=== PATIENT | female | born 1930 | race Caucasian/White ===

== ENCOUNTER 2019-12-27 07:57 | Inpatient (IN) | payer MEDICARE, BC ==
[2019-12-27] MEDS ORDERED: NORMAL SALINE 500 ML IV ONE (08:02)
--- NOTE | 2019-12-27 08:05 | ER Document Report ---
ED General - General Stated Complaint: URINARY ISSUES,DIARRHEA Time Seen by Provider: 12/27/19 08:02 Notes: 89-year-old lady presents brought in by EMS for unknown reasons. Apparently she is just finished a course of Keflex for what sounds like it might of been a UTI. This morning she had 2 episodes of diarrhea which at home health aide had to clean up, somehow suspected UTI and called 911. The patient has no complaints at all except for chronic back pain. She is demented but oriented x3 and denies vomiting dysuria abdominal cramping. She does remember having diarrhea but it did not bother her. EMS vitals normal. TRAVEL OUTSIDE OF THE [place] IN LAST 30 DAYS: No - Related Data Allergies/Adverse Reactions: No Known Allergies Allergy (Verified 11/21/11 09:28) Past Medical History - General Information source: Patient - Social History Smoking Status: Never Smoker Family History: None - Past Medical History Cardiac Medical History: Reports: Hx Atrial Fibrillation, Hx Hypertension Denies: Hx Coronary Artery Disease, Hx Heart Attack Pulmonary Medical History: Denies: Hx Asthma, Hx Bronchitis, Hx COPD, Hx Pneumonia, Hx Tuberculosis Neurological Medical History: Denies: Hx Cerebrovascular Accident, Hx Seizures GI Medical History: Denies: Hx Hepatitis, Hx Hiatal Hernia, Hx Ulcer Musculoskeletal Medical History: 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 Denies: Hx Mastectomy, Hx Open Heart Surgery, Hx Pacemaker - Immunizations Hx Diphtheria, Pertussis, Tetanus Vaccination: Yes Hx Pneumococcal Vaccination: 05/04/08 Review of Systems - Review of Systems Notes: REVIEW OF SYSTEMS GEN: Denies fever, chills, weight loss ENT: Denies sore throat, nasal discharge, ear pain EYES: Denies blurry vision, eye pain, discharge CV: Denies chest pain, palpitations, edema RESP: Denies cough, shortness of breath, wheezing GI: Denies abdominal pain, nausea, vomiting, diarrhea MSK: Back pain unchanged SKIN: Denies rash, skin lesions LYMPH: Denies swollen glands/lymph nodes NEURO: Denies headache, focal weakness or numbness, dizziness PSYCH: Denies depression, suicidal or homicidal ideation PHYSICAL EXAMINATION General: No acute distress, well-nourished Head: Atraumatic, normocephalic ENT: Mouth normal, oropharynx moist, no exudates or tonsillar enlargement Eyes: Conjunctiva normal, pupils equal, lids normal Neck: No JVD, supple, no guarding CVS: Normal rate, regular rhythm, no murmurs Resp: No resp distress, equal and normal breath sounds bilaterally GI: Nondistended, soft, no tenderness to palpation, no rebound or guarding Ext: No deformities, no edema, normal range of motion in upper and lower ext Back: No CVA or midline TTP Skin: No rash, warm Lymphatic: No lymphadeopathy noted Neuro: Awake, alert. Face symmetric. GCS 15. Physical Exam - Vital signs Vitals: Temp Pulse BP Pulse Ox 98.2 F 95 168/92 H 96 12/27/19 08:01 12/27/19 08:01 12/27/19 08:01 12/27/19 08:01 Course - Re-evaluation Re-evalutation: 12/27/19 10:10 Patient presents with diarrhea in the setting of recent Keflex for what may have been a UTI or diving. Not having diarrhea in the ED. We will give fluids and check labs. Will not repeat UA as she has no symptoms or fever Mild hyponatremia and hypokalemia. Attempted admission, Dr. Talavera and I agreed to attempt fluid hydration/resuscitation and recheck her BMP and if less than 130 will admit. Discussed with family who agrees. 12/27/19 14:56 Patient got fluids and potassium and her sodium did not change. Admitted by Dr. pham. - Vital Signs Vital signs: Temp Pulse Resp BP Pulse Ox 98.4 F 77 18 154/88 H 94 12/27/19 11:46 12/27/19 11:42 12/27/19 11:42 12/27/19 11:42 12/27/19 11:42 - Laboratory Result Diagrams: 12/27/19 08:10 12/27/19 10:48 Laboratory results interpreted by me: 12/27/19 12/27/19 12/27/19 08:10 08:10 10:48 RDW 14.5 H Lymph % (Auto) 11.0 L [place] % (Auto) 13.3 H Sodium 122.9 L 122.6 L Potassium 3.1 L 3.2 L Chloride 84 L 86 L Carbon Dioxide 33 H 31 H Serum Osmolality Calcium 8.0 L 7.6 L 12/27/19 10:48 RDW Lymph % (Auto) [place] % (Auto) Sodium Potassium Chloride Carbon Dioxide Serum Osmolality 252 L Calcium Critical Care Note - Critical Care Note Total time excluding time spent on procedures (mins): 31 Comments: The above patient is critically ill. Not including procedures, but including direct re-evaluations, speaking with patient and/or consultants, interpreting results, and documenting, I spent the total amount of minute listed listed above on critical care time Discharge - Discharge Clinical Impression: Hyponatremia Condition: Good Disposition: ADMITTED OBSERVATION Admitting Provider: [facility] Unit Admitted: Telemetry
[2019-12-27 08:37] LABS: ABSOLUTE BASOPHILS # (AUTO) 0.1 10^3/uL (0.0-0.2); ABSOLUTE LYMPHOCYTES (AUTO) 0.9 10^3/uL (0.5-4.7); ABSOLUTE MONOCYTES (AUTO) 1.1 10^3/uL (0.1-1.4); ABSOLUTE NEUT (AUTO) 6.1 10^3/uL (1.7-8.2); BASOPHILS % (AUTO) 0.8 % (0-2); EOSINOPHILS % (AUTO) 0.5 % (0-6); HEMATOCRIT 36.3 % (36.0-47.0); HEMOGLOBIN 12.4 g/dL (12.0-15.5); MEAN CORPUSCULAR HGB CONC 34.3 g/dL (32.0-36.0); MEAN CORPUSCULAR VOLUME 88 fl (80-97); MONOCYTES % (AUTO) 13.3 % (3-13); PLATELET COUNT 254 10^3/uL (150-450); RED BLOOD COUNT 4.13 10^6/uL (3.72-5.28); RED CELL DISTRIBUTION WIDTH 14.5 % (11.5-14.0); SEGMENTED NEUTROPHILS % (AUTO) 74.4 % (42-78); TOTAL CELLS COUNTED % (AUTO) 100 %; WHITE BLOOD COUNT 8.2 10^3/uL (4.0-10.5)
[2019-12-27 08:47] LABS: ANION GAP 6 (5-19); BLOOD UREA NITROGEN 15 mg/dL (7-20); CARBON DIOXIDE 33 mmol/L (22-30); CHLORIDE 84 mmol/L (98-107); GLUCOSE 91 mg/dL (75-110)
[2019-12-27 08:51] LABS: POTASSIUM 3.1 mmol/L (3.6-5.0)
[2019-12-27] MEDS ORDERED: POTASSIUM CHLORIDE 10 MEQ TABLET.ER PO ONE ×2 (09:22→14:15)
[2019-12-27] MEDS ORDERED: RINGERS SOLUTION,LACTATED 1,000 ML IV ONE (09:27)
[2019-12-27 11:32] LABS: ANION GAP 6 (5-19); BLOOD UREA NITROGEN 13 mg/dL (7-20); CALCIUM 7.6 mg/dL (8.4-10.2); CARBON DIOXIDE 31 mmol/L (22-30); CHLORIDE 86 mmol/L (98-107); GLUCOSE 83 mg/dL (75-110); POTASSIUM 3.2 mmol/L (3.6-5.0)
[2019-12-27] MEDS ORDERED: MAG HYDROX/AL HYDROX/SIMETH SUSP 30 ML UDCUP PO PRN (13:41)
[2019-12-27] MEDS ORDERED: ALBUTEROL SULFATE 0.083% NEB 2.5 MG/3 ML AMPUL NEB PRN (13:41)
[2019-12-27] MEDS ORDERED: ONDANSETRON HCL INJ/PF 4 MG/2 ML SDV IV PRN (13:41)
[2019-12-27] MEDS ORDERED: ACETAMINOPHEN 325 MG TABLET PO PRN (13:41)
--- NOTE | 2019-12-27 14:12 | PDOC H&P ---
History of Present Illness Admission Date/PCP: 12/27/19 12:47 TOM MOODY MD Patient complains of: Generalized weakness and falls History of Present Illness: BREANNA BAUGH is a 89 year old female with a past medical history of hypertension, hyperlipidemia, GERD, depression who presents to the emergency department today with a complaint of generalized weakness and frequent falls over the last week. Family member noted she began having frequent loose stools yesterday. She has had multiple courses of p.o. antibiotics recently for urinary tract infection. She denies dysuria, hematuria, urinary urgency and frequency. Patient did fall yesterday; denies syncope or injury related to falls. She typically walks with min assist and walker. Evaluation in the emergency department revealed stable vital signs. Hyponatremia (NA 122.9), hypokalemia (K3.1). She was provided p.o. potassium and IV normal saline. She is referred to the hospitalist service for further evaluation and management of the above-stated complaints and findings. 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 GI Medical History: Denies: Hepatitis, Hiatal Hernia Musculoskeltal Medical History: Reports: Arthritis - RA Psychiatric Medical History: Reports: Dementia, Depression Hematology: Denies: Anemia, Sickle Cell Disease Infectious Medical History: Reports: None Past Surgical History Past Surgical History: Reports: Orthopedic Surgery - right arm, Pacemaker, Other - partial gastrectomy Denies: Amputation, Mastectomy Social History Information Source: Patient, Relative Lives with: Family Smoking Status: Never Smoker Electronic Cigarette use?: No Frequency of Alcohol Use: None Hx Recreational Drug Use: No Hx Prescription Drug Abuse: No - Advance Directive Resuscitation Status: Full Code Family History Family History: None Parental Family History Reviewed: No - can't recall Children Family History Reviewed: Yes Sibling(s) Family History Reviewed.: Yes Medication/Allergy Home Medications: Amlodipine Besylate [Norvasc 10 mg Tablet] 10 mg PO DAILY 12/27/19 Atorvastatin Calcium [Lipitor 10 mg Tablet] 10 mg PO QHS 12/27/19 Fluoxetine HCl [Prozac 20 mg Capsule] 20 mg PO DAILY 12/27/19 Furosemide [Lasix 20 mg Tablet] 20 mg PO QAM 12/27/19 Losartan Potassium [Cozaar 50 mg Tablet] 100 mg PO DAILY 12/27/19 Omeprazole 40 mg PO 12/27/19 Potassium Chloride [Klor-Con 10 Meq Tablet ER] 10 meq PO DAILY 12/27/19 Allergies/Adverse Reactions: No Known Allergies Allergy (Verified 11/21/11 09:28) Review of Systems Constitutional: PRESENT: anorexia, fatigue, weakness, weight loss. ABSENT: chills, fever(s), headache(s), weight gain Eyes: ABSENT: visual disturbances Ears: ABSENT: hearing changes Cardiovascular: ABSENT: chest pain, dyspnea on exertion, edema, orthropnea, palpitations Respiratory: ABSENT: cough, hemoptysis Gastrointestinal: ABSENT: abdominal pain, constipation, diarrhea, hematemesis, hematochezia, nausea, vomiting Genitourinary: ABSENT: dysuria, hematuria Musculoskeletal: ABSENT: joint swelling Integumentary: ABSENT: rash, wounds Neurological: PRESENT: confusion, frequent falls. ABSENT: abnormal gait, abnormal speech, dizziness, focal weakness, syncope Psychiatric: ABSENT: anxiety, depression, homidical ideation, suicidal ideation Endocrine: ABSENT: cold intolerance, heat intolerance, polydipsia, polyuria Hematologic/Lymphatic: ABSENT: easy bleeding, easy bruising Physical Exam Vital Signs: Temp Pulse Resp BP Pulse Ox 98.4 F 77 18 154/88 H 94 12/27/19 11:46 12/27/19 11:42 12/27/19 11:42 12/27/19 11:42 12/27/19 11:42 Intake & Output 12/26/19 12/27/19 12/28/19 06:59 06:59 06:59 Intake Total 1500 Balance 1500 Weight 45.359 kg General appearance: PRESENT: no acute distress, cooperative, hard of hearing, thin, well-developed, well-nourished Head exam: PRESENT: atraumatic, normocephalic Eye exam: PRESENT: conjunctiva pink, EOMI, PERRLA. ABSENT: scleral icterus Mouth exam: PRESENT: moist, tongue midline Respiratory exam: PRESENT: clear to auscultation margaret, symmetrical, unlabored. ABSENT: rales, rhonchi, wheezes Cardiovascular exam: PRESENT: RRR, +S1, +S2. ABSENT: diastolic murmur, rubs, systolic murmur Pulses: PRESENT: normal dorsalis pedis pul Vascular exam: PRESENT: normal capillary refill GI/Abdominal exam: PRESENT: normal bowel sounds, soft. ABSENT: distended, guarding, mass, organolmegaly, rebound, tenderness Rectal exam: PRESENT: deferred Extremities exam: PRESENT: full ROM. ABSENT: calf tenderness, clubbing, pedal edema Neurological exam: PRESENT: alert, awake, oriented to person, oriented to place, oriented to situation, CN II-XII grossly intact, other - intermittently confused/forgetful; possibly attributed to lack of hearing aids at this time. ABSENT: motor sensory deficit Psychiatric exam: PRESENT: appropriate affect, normal mood. ABSENT: homicidal ideation, suicidal ideation Skin exam: PRESENT: dry, warm, other - skin tear right elbow; scattered ecchymosis. ABSENT: cyanosis, rash Results Laboratory Results: 12/27/19 08:10 12/27/19 10:48 12/27/19 12/27/19 12/27/19 08:10 08:10 10:48 WBC 8.2 RBC 4.13 Hgb 12.4 Hct 36.3 MCV 88 MCH 30.0 MCHC 34.3 RDW 14.5 H Plt Count 254 Seg Neutrophils % 74.4 Sodium 122.9 L 122.6 L Potassium 3.1 L 3.2 L Chloride 84 L 86 L Carbon Dioxide 33 H 31 H Anion Gap 6 6 BUN 15 13 Creatinine 0.56 0.52 Est GFR ( Amer) > 60 > 60 Glucose 91 83 Calcium 8.0 L 7.6 L Assessment and Plan - Diagnosis (1) Hyponatremia Is this a current diagnosis for this admission?: Yes Plan: Son reports recent to poor p.o. intake and frequent loose stools. She has had multiple courses of antibiotics for UTI over the last month. She does appear euvolemic on exam. Urinalysis, urine sodium, urine osmolality pending. Serum osmolality pending. Keep in mind that the patient has already received 1 L normal saline per ED provider when interpreting these labs. We will check TSH with a.m. lab work. Hold patient's home dose of Prozac and furosemide. Liberalize dietary sodium. Fluid restrict 2 L daily. Strict I&O's. Serial chemistries. (2) Hypokalemia Is this a current diagnosis for this admission?: Yes Plan: Secondary to poor p.o. intake and GI losses. Potassium 3.2. We will provide additional oral and IV replacement. Magnesium pending. Follow-up chemistry. (3) Weakness Is this a current diagnosis for this admission?: Yes Plan: Likely multifactorial secondary to age, frequent UTI illnesses, hyponatremia, hypokalemia. PT/OT consultations requested. Fall precautions. (4) HTN (hypertension) Is this a current diagnosis for this admission?: Yes Plan: We will continue home dose medication regiment with the exception of furosemide. Adjust medications as indicated. (5) HLD (hyperlipidemia) Is this a current diagnosis for this admission?: Yes Plan: Continue home dose statin therapy. (6) Diarrhea Qualifiers: Diarrhea type: unspecified type Qualified Code(s): R19.7 - Diarrhea, unspec ified Is this a current diagnosis for this admission?: Yes Plan: Son reports 24 hours of frequent loose stools. Multiple recent antibiotics for UTIs. Patient is afebrile, WBC nml, no abd discomfort. Low suspicion for C. Diff, however, will r/o. C. diff PCR pending. (7) Frequent falls Is this a current diagnosis for this admission?: Yes Plan: As above. - Time Time Spent with patient: 35 or more minutes Medications reviewed and adjusted accordingly: Yes Anticipated Discharge Disposition: Home with Home Health Anticipated Discharge Timeframe: >72 hrs - Inpatient Certification Based on my medical assessment, after consideration of the patient's comorbidities, presenting symptoms, or acuity I expect that the services needed warrant INPATIENT care.: Yes I certify that my determination is in accordance with my understanding of Medicare's requirements for reasonable and necessary INPATIENT services [42 CFR 412.3e].: Yes Medical Necessity: Need Close Monitoring Due to Risk of Patient Decompensation, Need For IV Fluids
[2019-12-27] MEDS: HEPARIN SOD (PORCINE) 5,000 UNIT/ML 1 ML VIAL SUBCUT SCH ×2 (15:25→21:49)
[2019-12-27] MEDS: NORMAL SALINE 1000 ML 1,000 ML IV PRN (15:46)
[2019-12-27] MEDS: POTASSI CL 20 MEQ/50 ML RIDER 20 MEQ/50 ML RTUPB IV SCH ×2 (15:46→17:54)
[2019-12-28 06:26] LABS: HEMATOCRIT 35.8 % (36.0-47.0); HEMOGLOBIN 12.2 g/dL (12.0-15.5); MEAN CORPUSCULAR HEMOGLOBIN 29.8 pg (27.0-33.4); MEAN CORPUSCULAR VOLUME 88 fl (80-97); PLATELET COUNT 248 10^3/uL (150-450); RED BLOOD COUNT 4.08 10^6/uL (3.72-5.28); RED CELL DISTRIBUTION WIDTH 14.4 % (11.5-14.0); WHITE BLOOD COUNT 6.7 10^3/uL (4.0-10.5)
[2019-12-28] MEDS: HEPARIN SOD (PORCINE) 5,000 UNIT/ML 1 ML VIAL SUBCUT SCH ×3 (06:48→21:29)
[2019-12-28 06:57] LABS: FREE T3 2.02 pg/mL (2.77-5.27); FREE T4 (FREE THYROXINE) 1.8 ng/dL (0.78-2.19)
[2019-12-28 07:10] LABS: THYROID STIMULATING HORMONE 3.4 uIU/mL (0.47-4.68)
[2019-12-28 08:59] LABS: ANION GAP 10 (5-19); BLOOD UREA NITROGEN 14 mg/dL (7-20); CALCIUM 8.4 mg/dL (8.4-10.2); CARBON DIOXIDE 24 mmol/L (22-30); CHLORIDE 92 mmol/L (98-107); GLUCOSE 87 mg/dL (75-110)
[2019-12-28 09:07] LABS: POTASSIUM 4.4 mmol/L (3.6-5.0)
[2019-12-28 09:44] LABS: APPEARANCE,URINE CLEAR; BILIRUBIN,URINE NEGATIVE (NEGATIVE); COLOR,URINE YELLOW; GLUCOSE, URINE NEGATIVE (NEGATIVE); KETONES,URINE 20 mg/dL (NEGATIVE); PROTEIN,URINE 30 mg/dL (NEGATIVE); URINE SPECIFIC GRAVITY 1.009
[2019-12-28 10:53] LABS: URINE SODIUM 86 mmol/L (30-90)
[2019-12-28 10:56] LABS: OSMOLALITY,URINE 342 mOsm/kg (300-900)
[2019-12-28 11:24] LABS: C DIFFICILE GDH NEGATIVE (NEGATIVE)
[2019-12-28] MEDS: NORMAL SALINE 1000 ML 1,000 ML IV PRN (12:02)
[2019-12-28] MEDS ORDERED: LOPERAMIDE HCL 2 MG CAPSULE PO PRN (17:36)
--- NOTE | 2019-12-28 17:37 | PDOC PROGRESS REPORT ---
Subjective Progress Note for:: 12/28/19 Subjective:: BREANNA BAUGH is a 89 year old female with a past medical history of hypertension, hyperlipidemia, GERD, depression who was admitted 12/27/19 for hyponatremia and hypokalemia. Patient was seen on afternoon rounds with her son present. She was resting in bed, comfortably, on room air. She tells me she does not feel well, but is unable to describe why and answers all ROS questions to the negative. Son reports slight increase in confusion today. She denies chest pain, palpitations, dyspnea, abdominal pain, nausea vomiting and diarrhea. She reports average appetite; son indicates that he is not certain what she has had to eat today, but she did eat an egg roll and drink a full size drink that he brought in from outside. Nursing notes indicate she is consumed 25 to 50% of her meals. I have no other questions or concerns at this time. No concerns per nursing. Reason For Visit: HYPONATREMIA,HYPOKALEMIA Physical Exam Vital Signs: Temp Pulse Resp BP Pulse Ox 98.2 F 79 19 154/86 H 91 L 12/28/19 12:53 12/28/19 14:00 12/28/19 12:53 12/28/19 12:53 12/28/19 12:53 Intake & Output 12/27/19 12/28/19 12/29/19 06:59 06:59 06:59 Intake Total 1959 1699 Balance 1959 1699 Weight 45.35 kg 45.3 kg General appearance: PRESENT: no acute distress, cooperative, hard of hearing, thin, well-developed Head exam: PRESENT: atraumatic, normocephalic Eye exam: PRESENT: conjunctiva pink, EOMI, PERRLA. ABSENT: scleral icterus Ear exam: PRESENT: normal external ear exam Mouth exam: PRESENT: moist, tongue midline Respiratory exam: PRESENT: clear to auscultation margaret, symmetrical, unlabored. ABSENT: rales, rhonchi, wheezes Cardiovascular exam: PRESENT: RRR. ABSENT: diastolic murmur, rubs, systolic murmur Pulses: PRESENT: normal dorsalis pedis pul Vascular exam: PRESENT: normal capillary refill GI/Abdominal exam: PRESENT: normal bowel sounds, soft. ABSENT: distended, guarding, mass, organolmegaly, rebound, tenderness Rectal exam: PRESENT: deferred Extremities exam: PRESENT: full ROM. ABSENT: calf tenderness, clubbing, pedal edema Neurological exam: PRESENT: alert, awake, oriented to person, oriented to place, oriented to time, oriented to situation, CN II-XII grossly intact, other - intermittently confused/forgetful. ABSENT: motor sensory deficit Psychiatric exam: PRESENT: appropriate affect, normal mood. ABSENT: homicidal ideation, suicidal ideation Skin exam: PRESENT: dry, intact, skin tears - skin tear right elbow; scattered ecchymosis, warm, other - Improved skin turgor. ABSENT: cyanosis, rash Results Laboratory Results: 12/28/19 05:47 12/28/19 05:47 12/28/19 12/28/19 12/28/19 05:47 05:47 05:47 WBC 6.7 RBC 4.08 Hgb 12.2 Hct 35.8 L MCV 88 MCH 29.8 MCHC 34.0 RDW 14.4 H Plt Count 248 Sodium 125.5 L Potassium 4.4 D Chloride 92 L Carbon Dioxide 24 Anion Gap 10 BUN 14 Creatinine 0.52 Est GFR ( Amer) > 60 Glucose 87 Calcium 8.4 TSH 3.40 Free T4 1.80 Free T3 pg/mL 2.02 L Urine Color Urine Appearance Urine pH Ur Specific [place] Urine Protein Urine Glucose (UA) Urine Ketones Urine Blood Urine RBC (Auto) Urine Osmolality 12/28/19 12/28/19 07:24 07:24 WBC RBC Hgb Hct MCV MCH MCHC RDW Plt Count Sodium Potassium Chloride Carbon Dioxide Anion Gap BUN Creatinine Est GFR ( Amer) Glucose Calcium TSH Free T4 Free T3 pg/mL Urine Color YELLOW Urine Appearance CLEAR Urine pH 7.0 Ur Specific [place] 1.009 Urine Protein 30 H Urine Glucose (UA) NEGATIVE Urine Ketones 20 H Urine Blood NEGATIVE Urine RBC (Auto) 1 Urine Osmolality 342 Assessment and Plan - Diagnosis (1) Hyponatremia Is this a current diagnosis for this admission?: Yes Plan: Son reports recent to poor p.o. intake and frequent loose stools. She has had multiple courses of antibiotics for UTI over the last month. She does appear dehydrated on exam; poor skin turgor, dry skin, dry mucous membranes. Urinalysis was negative. Urine sodium, urine osmolality were unfortunately not collected until after 24 hours of IV fluids. Both normal at this time. Serum osmolality slightly low at 252 following 1 L normal saline by ED provider. Thyroid panel is acceptable. Hold patient's home dose of Prozac and furosemide. Liberalize dietary sodium. Continue gently IVF Free water restrict 2 L daily. Sodium chloride 1 g p.o. daily. Strict I&O's. Serial chemistries. (2) Hypokalemia Is this a current diagnosis for this admission?: Yes Plan: Replete. Secondary to poor p.o. intake and GI losses. Magnesium 1.6 Follow-up chemistry. (3) Weakness Is this a current diagnosis for this admission?: Yes Plan: Likely multifactorial secondary to age, frequent UTI illnesses, hyponatremia, hypokalemia. PT/OT consultations requested. Fall precautions. (4) HTN (hypertension) Is this a current diagnosis for this admission?: Yes Plan: We will continue home dose medication regiment with the exception of furosemide. Adjust medications as indicated. (5) HLD (hyperlipidemia) Is this a current diagnosis for this admission?: Yes Plan: Continue home dose statin therapy. (6) Diarrhea Qualifiers: Diarrhea type: unspecified type Qualified Code(s): R19.7 - Diarrhea, unspecified Is this a current diagnosis for this admission?: Yes Plan: Son reports 24 hours of frequent loose stools. Multiple recent antibiotics for UTIs. Patient is afebrile, WBC nml, no abd discomfort. 3 bowel movements noted by nursing today. C. difficile negative. We will start Imodium as needed (7) Frequent falls Is this a current diagnosis for this admission?: Yes Plan: As above. - Time Time Spent with patient: 25-34 minutes Medications reviewed and adjusted accordingly: Yes Anticipated Discharge Disposition: Home with Home Health Anticipated Discharge Timeframe: within 24 hours
[2019-12-28] MEDS ORDERED: SODIUM CHLORIDE 1 GM TABLET PO SCH (20:00)
[2019-12-28] MEDS: ATORVASTATIN CALCIUM 10 MG TABLET PO SCH (21:29)
[2019-12-29] MEDS: NORMAL SALINE 1000 ML 1,000 ML IV PRN (04:58)
[2019-12-29] MEDS: PANTOPRAZOLE SODIUM 40 MG TABLET.DR PO SCH (05:03)
[2019-12-29] MEDS: HEPARIN SOD (PORCINE) 5,000 UNIT/ML 1 ML VIAL SUBCUT SCH ×3 (05:03→21:48)
[2019-12-29 07:54] LABS: HEMOGLOBIN 11.9 g/dL (12.0-15.5); MEAN CORPUSCULAR HEMOGLOBIN 29.7 pg (27.0-33.4); MEAN CORPUSCULAR HGB CONC 33.9 g/dL (32.0-36.0); MEAN CORPUSCULAR VOLUME 88 fl (80-97); PLATELET COUNT 279 10^3/uL (150-450); RED CELL DISTRIBUTION WIDTH 14.5 % (11.5-14.0)
[2019-12-29 08:19] LABS: ANION GAP 8 (5-19); BLOOD UREA NITROGEN 13 mg/dL (7-20); CALCIUM 8.4 mg/dL (8.4-10.2); CARBON DIOXIDE 22 mmol/L (22-30); CHLORIDE 93 mmol/L (98-107); GLUCOSE 108 mg/dL (75-110); POTASSIUM 3.6 mmol/L (3.6-5.0)
[2019-12-29] MEDS ORDERED: ONDANSETRON HCL INJ/PF 4 MG/2 ML SDV IV PRN (09:00)
[2019-12-29] MEDS: LOSARTAN POTASSIUM 50 MG TABLET PO SCH (09:21)
[2019-12-29] MEDS: SODIUM CHLORIDE 1 GM TABLET PO SCH (09:22)
--- NOTE | 2019-12-29 18:42 | PDOC PROGRESS REPORT ---
Subjective Progress Note for:: 12/29/19 Subjective:: BREANNA BAUGH is a 89 year old female with a past medical history of hypertension, hyperlipidemia, GERD, depression who was admitted 12/27/19 for hyponatremia and hypokalemia. Patient was seen on afternoon rounds with her son present. She was resting in bed, comfortably, on room air. She states she is feeling well today. Slightly improved appetite. Documentation reveals that she is eating 25 to 50% of her meals. She denies chest pain, palpitations, dyspnea, abdominal pain, nausea vomiting and diarrhea. She has no other questions or concerns at this time. Discussed with patient's son that her sodium has decreased slightly; I have placed her on salt tablets. Discussed that laboratory results are primarily unrevealing; believe her chronic hyponatremia is likely related to age and decreased appetite which is expected to worsen over time. They have no other questions or concerns at this time. No concerns per nursing. Reason For Visit: HYPONATREMIA,HYPOKALEMIA Physical Exam Vital Signs: Temp Pulse Resp BP Pulse Ox 98.2 F 74 15 149/72 H 93 12/29/19 15:41 12/29/19 15:41 12/29/19 15:41 12/29/19 15:41 12/29/19 15:41 Intake & Output 12/28/19 12/29/19 12/30/19 06:59 06:59 06:59 Intake Total 1960 2547 Balance 19597 Weight 45.35 kg 45.3 kg General appearance: PRESENT: no acute distress, cooperative, hard of hearing, thin, well-developed Head exam: PRESENT: atraumatic, normocephalic Eye exam: PRESENT: conjunctiva pink, EOMI, PERRLA. ABSENT: scleral icterus Mouth exam: PRESENT: moist, tongue midline Respiratory exam: PRESENT: clear to auscultation margaret, symmetrical, unlabored. ABSENT: rales, rhonchi, wheezes Cardiovascular exam: PRESENT: RRR. ABSENT: diastolic murmur, rubs, systolic murmur Pulses: PRESENT: normal dorsalis pedis pul Vascular exam: PRESENT: normal capillary refill Extremities exam: PRESENT: full ROM. ABSENT: calf tenderness, clubbing, pedal edema Musculoskeletal exam: PRESENT: ambulatory - With front wheel walker and moderate assist x1 Neurological exam: PRESENT: alert, awake, oriented to person, oriented to place, oriented to situation, CN II-XII grossly intact, other - Intermittently confused/forgetful; at baseline. ABSENT: motor sensory deficit Psychiatric exam: PRESENT: appropriate affect, normal mood. ABSENT: homicidal ideation, suicidal ideation Skin exam: PRESENT: dry, intact, warm. ABSENT: cyanosis, rash Results Laboratory Results: 12/29/19 07:07 12/29/19 07:07 12/29/19 12/29/19 12/29/19 07:07 07:07 07:07 WBC 7.0 RBC 4.00 Hgb 11.9 L Hct 35.0 L MCV 88 MCH 29.7 MCHC 33.9 RDW 14.5 H Plt Count 279 Sodium 123.3 L Potassium 3.6 Chloride 93 L Carbon Dioxide 22 Anion Gap 8 BUN 13 Creatinine 0.54 Est GFR ( Amer) > 60 Glucose 108 Calcium 8.4 Triglycerides 76 Assessment and Plan - Diagnosis (1) Hyponatremia Is this a current diagnosis for this admission?: Yes Plan: Overall unchanged. Son reports recent to poor p.o. intake and frequent loose stools. She has had multiple courses of antibiotics for UTI over the last month. She does appear dehydrated on exam; poor skin turgor, dry skin, dry mucous membranes. Urinalysis was negative. Urine sodium, urine osmolality were unfortunately not collected until after 24 hours of IV fluids. Both normal at this time. Serum osmolality slightly low at 252 following 1 L normal saline by ED provider. Thyroid panel is acceptable. A.m. cortisol and triglycerides are acceptable. ACTH is pending. Hold patient's home dose of Prozac and furosemide. Liberalize dietary sodium. Discontinue IV fluids Free water restrict 2 L daily. Encouraged patient to drink sodium containing fluids such as Gatorade, Pedialyte, V8 juice. Sodium chloride 2 g p.o. daily. Strict I&O's. Serial chemistries. Patient will likely benefit from endocrinology and/or nephrology follow-up. (2) Hypokalemia Is this a current diagnosis for this admission?: Yes Plan: Replete. Secondary to poor p.o. intake and GI losses. Magnesium 1.6 Follow-up chemistry. (3) Weakness Is this a current diagnosis for this admission?: Yes Plan: Likely multifactorial secondary to age, frequent UTI illnesses, hyponatremia, hypokalemia. PT/OT consultations requested. Fall precautions. (4) HTN (hypertension) Is this a current diagnosis for this admission?: Yes Plan: We will continue home dose medication regiment with the exception of furosemide. Adjust medications as indicated. (5) HLD (hyperlipidemia) Is this a current diagnosis for this admission?: Yes Plan: Continue home dose statin therapy. (6) Diarrhea Qualifiers: Diarrhea type: unspecified type Qualified Code(s): R19.7 - Diarrhea, unspecified Is this a current diagnosis for this admission?: Yes Plan: Resolved; no further episodes today. Multiple recent antibiotics for UTIs. Patient is afebrile, WBC nml, no abd discomfort. C. difficile negative. Continue imodium as needed (7) Frequent falls Is this a current diagnosis for this admission?: Yes Plan: As above. - Time Time Spent with patient: 25-34 minutes Medications reviewed and adjusted accordingly: Yes Anticipated Discharge Disposition: Home with Home Health Anticipated Discharge Timeframe: within 72 hours
[2019-12-29] MEDS: ATORVASTATIN CALCIUM 10 MG TABLET PO SCH (21:48)
[2019-12-30 05:27] LABS: ANION GAP 8 (5-19); BLOOD UREA NITROGEN 16 mg/dL (7-20); CALCIUM 8.2 mg/dL (8.4-10.2); CARBON DIOXIDE 24 mmol/L (22-30); CHLORIDE 92 mmol/L (98-107); GLUCOSE 107 mg/dL (75-110); POTASSIUM 3.4 mmol/L (3.6-5.0)
[2019-12-30] MEDS: PANTOPRAZOLE SODIUM 40 MG TABLET.DR PO SCH (05:54)
[2019-12-30] MEDS: HEPARIN SOD (PORCINE) 5,000 UNIT/ML 1 ML VIAL SUBCUT SCH ×3 (05:54→22:08)
[2019-12-30] MEDS ORDERED: TOLVAPTAN 15 MG TABLET PO ONE (09:30)
[2019-12-30] MEDS ORDERED: POTASSIUM CHLORIDE 10 MEQ TABLET.ER PO ONE (09:30)
[2019-12-30] MEDS: SODIUM CHLORIDE 1 GM TABLET PO SCH (10:04)
[2019-12-30] MEDS: LOSARTAN POTASSIUM 50 MG TABLET PO SCH (10:04)
--- NOTE | 2019-12-30 17:24 | PDOC PROGRESS REPORT ---
Subjective Progress Note for:: 12/30/19 Subjective:: BREANNA BAUGH is a 89 year old female with a past medical history of hypertension, hyperlipidemia, GERD, depression who was admitted 12/27/19 for hyponatremia and hypokalemia. Patient was seen on morning rounds. She was resting in bed, comfortably, on room air. She states she is feeling well today. Improved alertness and orientation today. She is conversational. She tells me that she is feeling better and is hopeful to go home soon, but does ask that I keep her until I am certain that she will have to come back. She does admit to a continued poor appetite and is agreeable to trial of Remeron. She denies chest pain, palpitations, dyspnea, abdominal pain, nausea vomiting and diarrhea. She has no other questions or concerns at this time. No concerns per nursing. Reason For Visit: HYPONATREMIA,HYPOKALEMIA Physical Exam Vital Signs: Temp Pulse Resp BP Pulse Ox 97.3 F 40 L 17 184/93 H 95 12/30/19 15:07 12/30/19 15:07 12/30/19 15:07 12/30/19 15:07 12/30/19 15:07 Intake & Output 12/29/19 12/30/19 12/31/19 06:59 06:59 06:59 Intake Total 2547 Balance 2547 Weight 45.3 kg 50.5 kg General appearance: PRESENT: no acute distress, cooperative, hard of hearing, thin, well-developed Head exam: PRESENT: atraumatic, normocephalic Eye exam: PRESENT: conjunctiva pink, EOMI, PERRLA. ABSENT: scleral icterus Mouth exam: PRESENT: moist, tongue midline Respiratory exam: PRESENT: clear to auscultation margaret, symmetrical, unlabored. ABSENT: rales, rhonchi, wheezes Cardiovascular exam: PRESENT: RRR. ABSENT: diastolic murmur, rubs, systolic murmur Vascular exam: PRESENT: normal capillary refill GI/Abdominal exam: PRESENT: normal bowel sounds, soft. ABSENT: distended, guarding, mass, organolmegaly, rebound, tenderness Rectal exam: PRESENT: deferred Extremities exam: PRESENT: full ROM. ABSENT: calf tenderness, clubbing, pedal edema Neurological exam: PRESENT: alert, awake, oriented to person, oriented to place, oriented to situation, CN II-XII grossly intact. ABSENT: motor sensory deficit Psychiatric exam: PRESENT: appropriate affect, normal mood. ABSENT: homicidal ideation, suicidal ideation Skin exam: PRESENT: dry, intact, warm. ABSENT: cyanosis, rash Results Laboratory Results: 12/29/19 07:07 12/30/19 04:49 12/30/19 04:49 Sodium 123.9 L Potassium 3.4 L Chloride 92 L Carbon Dioxide 24 Anion Gap 8 BUN 16 Creatinine 0.63 Est GFR ( Amer) > 60 Glucose 107 Calcium 8.2 L 12/27/19 15:13 Blood Blood Culture (PCR) - Final Staphylococcus Species Assessment and Plan - Diagnosis (1) Hyponatremia Is this a current diagnosis for this admission?: Yes Plan: Overall unchanged. Son reports recent to poor p.o. intake and frequent loose stools. She has had multiple courses of antibiotics for UTI over the last month. She does appear dehydrated on exam; poor skin turgor, dry skin, dry mucous membranes. Urinalysis was negative. Urine sodium, urine osmolality were unfortunately not collected until after 24 hours of IV fluids. Both normal at this time. Serum osmolality slightly low at 252 following 1 L normal saline by ED provider. Thyroid panel is acceptable. A.m. cortisol 32.8 ACTH is elevated to 88.1 Hold patient's home dose of Prozac and furosemide. Liberalize dietary sodium. Free water restrict 2 L daily. Encouraged patient to drink sodium containing fluids such as Gatorade, Pedialyte, V8 juice. Sodium chloride 2 g p.o. daily. Tolvaptan x 1 dose Strict I&O's. Serial chemistries. Patient will likely benefit from endocrinology and/or nephrology follow-up. (2) Hypokalemia Is this a current diagnosis for this admission?: Yes Plan: Mild recurrent hypokalemia Secondary to poor p.o. intake and GI losses. Magnesium 1.6 Start daily replacement therapy. Follow-up chemistry. (3) Weakness Is this a current diagnosis for this admission?: Yes Plan: Likely multifactorial secondary to age, frequent UTI illnesses, hyponatremia, hypokalemia. PT/OT consultations requested. Fall precautions. (4) HTN (hypertension) Is this a current diagnosis for this admission?: Yes Plan: Continue home dose losartan. Continue holding furosemide. Start amlodipine 5 mg daily Adjust medications as indicated. (5) HLD (hyperlipidemia) Is this a current diagnosis for this admission?: Yes Plan: Continue home dose statin therapy. (6) Diarrhea Qualifiers: Diarrhea type: unspecified type Qualified Code(s): R19.7 - Diarrhea, unspecified Is this a current diagnosis for this admission?: Yes Plan: Resolved; no further episodes today. Multiple recent antibiotics for UTIs. Patient is afebrile, WBC nml, no abd discomfort. C. difficile negative. Continue imodium as needed (7) Frequent falls Is this a current diagnosis for this admission?: Yes Plan: Physical therapy consultation As above. - Time Time Spent with patient: 25-34 minutes Medications reviewed and adjusted accordingly: Yes Anticipated Discharge Disposition: Home with Home Health Anticipated Discharge Timeframe: within 48 hours
[2019-12-30 18:25] LABS: ANION GAP 5 (5-19); BLOOD UREA NITROGEN 15 mg/dL (7-20); CALCIUM 8.4 mg/dL (8.4-10.2); CARBON DIOXIDE 25 mmol/L (22-30); CHLORIDE 93 mmol/L (98-107); GLUCOSE 143 mg/dL (75-110); POTASSIUM 4.3 mmol/L (3.6-5.0)
[2019-12-30] MEDS ORDERED: AMLODIPINE BESYLATE 5 MG TABLET PO SCH (22:00)
[2019-12-30] MEDS ORDERED: MIRTAZAPINE 15 MG TABLET PO SCH (22:00)
[2019-12-30] MEDS: ATORVASTATIN CALCIUM 10 MG TABLET PO SCH (22:09)
[2019-12-31] MEDS: PANTOPRAZOLE SODIUM 40 MG TABLET.DR PO SCH (06:23)
[2019-12-31] MEDS: HEPARIN SOD (PORCINE) 5,000 UNIT/ML 1 ML VIAL SUBCUT SCH ×2 (06:23→15:34)
[2019-12-31 06:58] LABS: ANION GAP 7 (5-19); BLOOD UREA NITROGEN 18 mg/dL (7-20); CALCIUM 8.7 mg/dL (8.4-10.2); CARBON DIOXIDE 28 mmol/L (22-30); CHLORIDE 97 mmol/L (98-107); GLUCOSE 105 mg/dL (75-110); POTASSIUM 5.2 mmol/L (3.6-5.0)
[2019-12-31] MEDS ORDERED: POTASSIUM CHLORIDE 10 MEQ TABLET.ER PO SCH (10:00)
[2019-12-31] MEDS: LOSARTAN POTASSIUM 50 MG TABLET PO SCH (10:30)
[2019-12-31] MEDS: SODIUM CHLORIDE 1 GM TABLET PO SCH (10:31)
[2019-12-31 15:25] LABS: ANION GAP 5 (5-19); BLOOD UREA NITROGEN 15 mg/dL (7-20); CALCIUM 8.5 mg/dL (8.4-10.2); CARBON DIOXIDE 32 mmol/L (22-30); CHLORIDE 100 mmol/L (98-107); GLUCOSE 122 mg/dL (75-110)
[2019-12-31 15:29] LABS: POTASSIUM 3.6 mmol/L (3.6-5.0)
[2019-12-31 16:52] VITALS: BP 138/54
--- NOTE | 2020-01-03 10:35 | PDOC DISCHARGE SUMMARY ---
Impression - Admit/DC Date/PCP Admission Date/Primary Care Provider: 12/27/19 13:41 TOM MOODY MD Discharge Date: 12/31/19 - Discharge Diagnosis (1) Hyponatremia Is this a current diagnosis for this admission?: Yes (2) Hypokalemia Is this a current diagnosis for this admission?: Yes (3) Weakness Is this a current diagnosis for this admission?: Yes (4) HTN (hypertension) Is this a current diagnosis for this admission?: Yes (5) HLD (hyperlipidemia) Is this a current diagnosis for this admission?: Yes (6) Diarrhea Is this a current diagnosis for this admission?: Yes (7) Frequent falls Is this a current diagnosis for this admission?: Yes - Additional Information Resuscitation Status: Full Code Discharge Diet: Regular Discharge Activity: Activity As Tolerated, Balance Activity w/Rest, Supervised Activity Referrals: TOM MOODY MD [Primary Care Provider] - 01/06/20 11:00 am Prescriptions: Amlodipine Besylate [Norvasc 5 mg Tablet] 5 mg PO QHS #30 tablet Mirtazapine [Remeron 15 mg Tablet] 7.5 mg PO QHS #30 tablet Sodium Chloride [Sodium Chloride 1 gm Tablet] 1 gm PO DAILY #30 tablet Home Medications: Acetaminophen [Tylenol Arthritis] 650 mg PO PRN PRN 12/27/19 Atorvastatin Calcium [Lipitor 10 mg Tablet] 10 mg PO QHS 12/27/19 Cranberry 500 mg PO BID 12/27/19 Losartan Potassium [Cozaar 50 mg Tablet] 100 mg PO DAILY 12/27/19 Omeprazole 40 mg PO DAILY 12/27/19 Acetaminophen [Tylenol 325 mg Tablet] 650 mg PO Q4HP PRN tablet 12/31/19 Amlodipine Besylate [Norvasc 5 mg Tablet] 5 mg PO QHS #30 tablet 12/31/19 Mirtazapine [Remeron 15 mg Tablet] 7.5 mg PO QHS #30 tablet 12/31/19 Sodium Chloride [Sodium Chloride 1 gm Tablet] 1 gm PO DAILY #30 tablet 12/31/19 History of Present Illiness History of Present Illness: BREANNA BAUGH is a 89 year old female with a past medical history of hypertension, hyperlipidemia, GERD, depression who presents to the emergency department today with a complaint of generalized weakness and frequent falls over the last week. Family member noted she began having frequent loose stools yesterday. She has had multiple courses of p.o. antibiotics recently for urinary tract infection. She denies dysuria, hematuria, urinary urgency and frequency. Patient did fall yesterday; denies syncope or injury related to falls. She typically walks with min assist and walker. Evaluation in the emergency department revealed stable vital signs. Hyponatremia (NA 122.9), hypokalemia (K3.1). She was provided p.o. potassium and IV normal saline. She is referred to the hospitalist service for further evaluation and management of the above-stated complaints and findings. Hospital Course Hospital Course: (1) Hyponatremia Improved 122.9->136.7 Son reports recent to poor p.o. intake and frequent loose stools. She has had multiple courses of antibiotics for UTI over the last month. She does appear dehydrated on exam; poor skin turgor, dry skin, dry mucous membranes. Urinalysis was negative. Urine sodium, urine osmolality were unfortunately not collected until after 24 hours of IV fluids. Both normal at this time. Serum osmolality slightly low at 252 following 1 L normal saline by ED provider. Thyroid panel is acceptable. A.m. cortisol 32.8 ACTH is elevated to 88.1 Hold patient's home dose of Prozac and furosemide; may resume at discretion of PCP. Recommend follow-up chemistry prior to resuming this medication.. Liberalize dietary sodium. Free water restrict 1.5 L daily. Encouraged patient to drink electrolyte containing fluids such as Gatorade, Pedialyte, V8 juice. Continue sodium chloride 1 g p.o. daily. Received tolvaptan x 1 dose Patient may benefit from endocrinology and/or nephrology follow-up. (2) Hypokalemia Replete. Mild recurrent hypokalemia Secondary to poor p.o. intake and GI losses. Magnesium 1.6 (3) Weakness Likely multifactorial secondary to age, frequent UTI illnesses, hyponatremia, hypokalemia. PT/OT consultations requested; will discharge home with home health services. Fall precautions. (4) HTN (hypertension) Continue home dose losartan. Continue holding furosemide; resume at discretion of PCP. Start amlodipine 5 mg daily Adjust medications as indicated. (5) HLD (hyperlipidemia) Continue home dose statin therapy. (6) Diarrhea Resolved; no further episodes Multiple recent antibiotics for UTIs. Patient is afebrile, WBC nml, no abd discomfort. C. difficile negative. Continue imodium as needed (7) Frequent falls Physical therapy consultation As above. Physical Exam Vital Signs: Temp Pulse Resp BP Pulse Ox 97.8 F 71 16 138/54 H 95 12/31/19 16:46 12/31/19 16:46 12/31/19 16:46 12/31/19 16:46 12/31/19 16:46 General appearance: PRESENT: no acute distress, thin, well-developed, well- nourished Head exam: PRESENT: atraumatic, normocephalic Eye exam: PRESENT: conjunctiva pink, EOMI, PERRLA. ABSENT: scleral icterus Mouth exam: PRESENT: moist, tongue midline Respiratory exam: PRESENT: clear to auscultation margaret, symmetrical, unlabored. ABSENT: rales, rhonchi, wheezes Cardiovascular exam: PRESENT: RRR. ABSENT: diastolic murmur, rubs, systolic murmur Pulses: PRESENT: normal dorsalis pedis pul Vascular exam: PRESENT: normal capillary refill GI/Abdominal exam: PRESENT: normal bowel sounds, soft. ABSENT: distended, guarding, mass, organolmegaly, rebound, tenderness Rectal exam: PRESENT: deferred Extremities exam: PRESENT: full ROM. ABSENT: calf tenderness, clubbing, pedal edema Neurological exam: PRESENT: alert, awake, oriented to person, oriented to place, oriented to situation, CN II-XII grossly intact, other - Confused; at present, she is well-appearing, alert, with improved mentation from yesterday. Son states that she is nearher baseline.. ABSENT: motor sensory deficit Psychiatric exam: PRESENT: appropriate affect, normal mood. ABSENT: homicidal ideation, suicidal ideation Skin exam: PRESENT: dry, intact, warm. ABSENT: cyanosis, rash Results Laboratory Results: WBC 7.0 10^3/uL (4.0-10.5) 12/29/19 07:07 RBC 4.00 10^6/uL (3.72-5.28) 12/29/19 07:07 Hgb 11.9 g/dL (12.0-15.5) L 12/29/19 07:07 Hct 35.0 % (36.0-47.0) L 12/29/19 07:07 MCV 88 fl (80-97) 12/29/19 07:07 MCH 29.7 pg (27.0-33.4) 12/29/19 07:07 MCHC 33.9 g/dL (32.0-36.0) 12/29/19 07:07 RDW 14.5 % (11.5-14.0) H 12/29/19 07:07 Plt Count 279 10^3/uL (150-450) 12/29/19 07:07 Lymph % (Auto) 11.0 % (13-45) L 12/27/19 08:10 [place] % (Auto) 13.3 % (3-13) H 12/27/19 08:10 Eos % (Auto) 0.5 % (0-6) 12/27/19 08:10 Baso % (Auto) 0.8 % (0-2) 12/27/19 08:10 Absolute Neuts (auto) 6.1 10^3/uL (1.7-8.2) 12/27/19 08:10 Absolute Lymphs (auto) 0.9 10^3/uL (0.5-4.7) 12/27/19 08:10 Absolute Monos (auto) 1.1 10^3/uL (0.1-1.4) 12/27/19 08:10 Absolute Eos (auto) 0.0 10^3/uL (0.0-0.6) 12/27/19 08:10 Absolute Basos (auto) 0.1 10^3/uL (0.0-0.2) 12/27/19 08:10 Seg Neutrophils % 74.4 % (42-78) 12/27/19 08:10 Sodium 136.7 mmol/L (137-145) L 12/31/19 14:20 Potassium 3.6 mmol/L (3.6-5.0) D 12/31/19 14:20 Chloride 100 mmol/L (98-107) 12/31/19 14:20 Carbon Dioxide 32 mmol/L (22-30) H 12/31/19 14:20 Anion Gap 5 (5-19) 12/31/19 14:20 BUN 15 mg/dL (7-20) 12/31/19 14:20 Creatinine 0.74 mg/dL (0.52-1.25) 12/31/19 14:20 Est GFR ( Amer) > 60 (>60) 12/31/19 14:20 Est GFR (MDRD) Non-Af > 60 (>60) 12/31/19 14:20 Glucose 122 mg/dL (75-110) H 12/31/19 14:20 Serum Osmolality 252 mOsm/kg (275-301) L 12/27/19 10:48 Calcium 8.5 mg/dL (8.4-10.2) 12/31/19 14:20 Magnesium 1.6 mg/dL (1.6-2.3) 12/27/19 10:48 Triglycerides 76 mg/dL (<150) 12/29/19 07:07 TSH 3.40 uIU/mL (0.47-4.68) 12/28/19 05:47 Free T4 1.80 ng/dL (0.78-2.19) 12/28/19 05:47 Free T3 pg/mL 2.02 pg/mL (2.77-5.27) L 12/28/19 05:47 Cortisol AM Sample 32.80 ug/dL (4.46-22.7) H 12/29/19 07:07 ACTH 88.1 pg/mL (7.2-63.3) H 12/29/19 09:34 Urine Color YELLOW 12/28/19 07:24 Urine Appearance CLEAR 12/28/19 07:24 Urine pH 7.0 (5.0-9.0) 12/28/19 07:24 Ur Specific [place] 1.009 12/28/19 07:24 Urine Protein 30 mg/dL (NEGATIVE) H 12/28/19 07:24 Urine Glucose (UA) NEGATIVE mg/dL (NEGATIVE) 12/28/19 07:24 Urine Ketones 20 mg/dL (NEGATIVE) H 12/28/19 07:24 Urine Blood NEGATIVE (NEGATIVE) 12/28/19 07:24 Urine Nitrite (Reflex) NEGATIVE (NEGATIVE) 12/28/19 07:24 Urine Bilirubin NEGATIVE (NEGATIVE) 12/28/19 07:24 Urine Urobilinogen 2.0 mg/dL (<2.0) H 12/28/19 07:24 Leukocyte Esterase Rfl NEGATIVE (NEGATIVE) 12/28/19 07:24 Urine RBC (Auto) 1 /HPF 12/28/19 07:24 U Hyaline Cast (Auto) 1 /LPF 12/28/19 07:24 Urine WBC (Reflex) 1 /HPF 12/28/19 07:24 Urine Mucus (Auto) RARE /LPF 12/28/19 07:24 Urine Osmolality 342 mOsm/kg (300-900) 12/28/19 07:24 Urine Sodium 86 mmol/L (30-90) 12/28/19 07:24 Urine Ascorbic Acid NEGATIVE (NEGATIVE) 12/28/19 07:24 Stl C. Difficile GDH Ag NEGATIVE (NEGATIVE) 12/28/19 07:24 Stl C.difficile Tox A&B NEGATIVE (NEGATIVE) 12/28/19 07:24 Plan Plan of Treatment: Patient is discharged home, in stable condition, into the care of family members with home health services. She is advised to follow-up with her primary care provider within 1 week; recommend follow-up lab work at that time (BMP). She is discharged home on sodium chloride tablets. She has been advised to restrict free water but may drink other fluids that have electrolytes (discussed Gatorade, Pedialyte, juices). Otherwise, liberalize dietary sodium. Take other medications as prescribed. Her Prozac has been placed on hold; may resume per discretion of PCP. Return to the emergency department as needed for any concerning symptoms. Time Spent: Greater than 30 Minutes Stroke Is this a Stroke Patient?: No Acute Heart Failure - Is this a Heart Failure Patient?: No
== END 2019-12-31 17:25 | disposition home health service (06) | DRG 641 ==
LOC: ER 07:57 → EH 12:47 → OBSVTOIN 13:41 → 4S 15:20
PROVIDERS: ADMIT Internal Medicine; ATTEND Registered Nurse
DX: E87.1 Hypo-osmolality and hyponatremia (principal); E87.6 Hypokalemia; I10 Essential (primary) hypertension; E78.5 Hyperlipidemia, unspecified; K21.9 Gastro-esophageal reflux disease without esophagitis; F32.9 Major depressive disorder, single episode, unspecified; I48.91 Unspecified atrial fibrillation; R19.7 Diarrhea, unspecified; Z95.0 Presence of cardiac pacemaker; Z90.3 Acquired absence of stomach [part of]
CPT/HCPCS: 36415; 80048; 81001; 82024; 82533; 83735; 83930; 83935; 84300; 84439; 84443; 84478; 84481; 85025; 85027; 87040; 87077; 87150; 87186; 87324; 87449; 96360; 96361; 99285; J1644; J3480; J3490; J7030; J7040; J7120

== ENCOUNTER 2020-04-26 07:23 | Emergency (ER) | payer MEDICARE, BC ==
--- NOTE | 2020-04-26 07:54 | RADIOLOGY REPORT (SQ) ---
CLINICAL HISTORY: stroke alert COMPARISON: None. TECHNIQUE: CT HEAD WITHOUT IV CONTRAST on 04/26/2020 7:28 AM IMPORT DISPATCHER This exam was performed according to our departmental dose-optimization program, which includes automated exposure control, adjustment of the mA and/or kV according to patient size and/or use of iterative reconstruction technique. FINDINGS: There is no acute hemorrhage, mass effect or midline shift. Dejesus-white differentiation is preserved. There is no hydrocephalus. There is no significant volume loss for age. The calvarium is intact. Orbits and globes are unremarkable. The paranasal sinuses are clear. Mastoid air cells are clear. IMPRESSION: No acute intracranial findings.
[2020-04-26 08:01] LABS: ABSOLUTE BASOPHILS # (AUTO) 0.1 10^3/uL (0.0-0.2); ABSOLUTE LYMPHOCYTES (AUTO) 1.8 10^3/uL (0.5-4.7); ABSOLUTE NEUT (AUTO) 4.9 10^3/uL (1.7-8.2); BASOPHILS % (AUTO) 1.3 % (0-2); HEMATOCRIT 40.2 % (36.0-47.0); HEMOGLOBIN 13.5 g/dL (12.0-15.5); LYMPHOCYTES % (AUTO) 23.5 % (13-45); MEAN CORPUSCULAR HEMOGLOBIN 27.6 pg (27.0-33.4); MEAN CORPUSCULAR HGB CONC 33.5 g/dL (32.0-36.0); MEAN CORPUSCULAR VOLUME 83 fl (80-97); MONOCYTES % (AUTO) 12.9 % (3-13); PLATELET COUNT 281 10^3/uL (150-450); RED BLOOD COUNT 4.87 10^6/uL (3.72-5.28); RED CELL DISTRIBUTION WIDTH 15.8 % (11.5-14.0); SEGMENTED NEUTROPHILS % (AUTO) 62.3 % (42-78); TOTAL CELLS COUNTED % (AUTO) 100 %; WHITE BLOOD COUNT 7.8 10^3/uL (4.0-10.5)
--- NOTE | 2020-04-26 08:02 | ER Document Report ---
ED General - General Chief Complaint: S/S of Possible Stroke Stated Complaint: POSSIBLE STROKE Time Seen by Provider: 04/26/20 07:26 Primary Care Provider: TOM MOODY MD [Primary Care Provider] - Follow up as needed TRAVEL OUTSIDE OF THE [place] IN LAST 30 DAYS: No - HPI Notes: Chief complaint: Possible stroke History of present illness: 89-year-old female who is moderately debilitated at baseline living alone with regular visits from home health seen now for new left-sided neurologic deficits noted by home health aide worker on arrival today. Patient reportedly was in her usual state when she went to bed around 9 PM. Upon awakening this morning at 6 AM she was noted to have prominent left- sided deficits involving upper and lower extremity. Denies headache or vomiting. - Related Data Allergies/Adverse Reactions: lactose Allergy (Verified 12/27/19 16:01) Past Medical History - General Information source: Patient, Emergency Med Personnel, [facility] Records - Social History Smoking Status: Former Smoker Frequency of alcohol use: None Drug Abuse: None Lives with: Alone Family History: None Patient has homicidal ideation: No - Past Medical History Cardiac Medical History: Reports: Hx Atrial Fibrillation, Hx Hypercholesterolemia, Hx Hypertension Denies: Hx Coronary Artery Disease, Hx Heart Attack Pulmonary Medical History: Denies: Hx Asthma, Hx Bronchitis, Hx COPD, Hx Pneumonia, Hx Tuberculosis Neurological Medical History: Denies: Hx Cerebrovascular Accident, Hx Seizures Endocrine Medical History: Denies: Hx Diabetes Mellitus Type 1, Hx Diabetes Mellitus Type 2 Malignancy Medical History: 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 Denies: Hx Mastectomy, Hx Open Heart Surgery, Hx Pacemaker - Immunizations Hx Diphtheria, Pertussis, Tetanus Vaccination: Yes Hx Pneumococcal Vaccination: 05/04/08 Review of Systems - Review of Systems Notes: Constitutional: Negative for fever. HENT: Negative for sore throat. Eyes: Negative for visual changes. Cardiovascular: Negative for chest pain. Respiratory: Negative for shortness of breath. Gastrointestinal: Negative for abdominal pain, vomiting or diarrhea. Genitourinary: Reports dysuria. Musculoskeletal: Negative for back pain. Skin: Negative for rash. Neurological: As per HPI. 10 point ROS negative except as marked above and in HPI. Physical Exam - Vital signs Vitals: Resp Pulse Ox 19 96 04/26/20 07:38 04/26/20 07:38 - Notes Notes: GENERAL: Frail appearing elderly female alert with eyes deviated to the right and obvious left hemiparesis. SKIN: Good turgor no rashes. HEAD: Normocephalic atraumatic. EYES: PERRLA. Eyes are deviated to the right with inability to gaze beyond midline. Conjunctivae and sclerae clear. EARS: CANALS AND TMS CLEAR. NOSE: CLEAR. MOUTH: Moist mucosa. Good dentition. No stridor or edema. No drooling. NECK: Supple. No masses or thyromegaly. No adenopathy. Carotids 2+ without bruits. No JVD. BACK: Symmetrical without tenderness. CHEST: Respirations unlabored. Breath sounds clear and symmetrical. HEART: Irregularly irregular rhythm. No murmur gallop or rub. ABDOMEN: Soft nontender without masses, organomegaly or rebound. Bowel sounds normally active. No bruits. GENITALIA: Deferred. EXTREMITIES: No edema. No calf tenderness. Cap refill less than 1.5 seconds. Dorsalis pedis and posterior tibial pulses 3+ and symmetrical. NEUROLOGICAL: Patient is alert. Eyes are strongly deviated to the right and she is unable to cross midline. She has flaccid paralysis of left upper and lower extremity. She has a positive Babinski with triple sign on the left. She has left hemisensory deficit. PSYCHIATRIC: Flat affect. Course - Re-evaluation Re-evalutation: 04/26/20 08:37 This is a "wake up" CVA and patient has a profound deficit essentially a left hemiparesis. Noncontrast CT read as normal by the radiologist. Findings have been reviewed with on-call neurologist at [facility] Dr. Edmund Norman. He is excepted the patient for transfer at this time. CTA of head and neck are pending at this time. Findings, clinical impression and plan of treatment have been discussed with patient/family. Understanding of current findings and recommendations has been acknowledged by them and there is agreement regarding disposition and follow-up. - Vital Signs Vital signs: Temp Pulse Resp BP Pulse Ox 98.6 F 96 18 125/85 96 04/26/20 07:39 04/26/20 08:04 04/26/20 08:04 04/26/20 08:04 04/26/20 08:04 - Laboratory Results Result Diagrams: 04/26/20 07:45 04/26/20 07:45 Laboratory Results Interpreted: 04/26/20 04/26/20 07:45 07:45 RDW 15.8 H Sodium 129.1 L Potassium 3.5 L Calcium 8.2 L Creatine Kinase < 20 L Total Protein 6.1 L Albumin 2.7 L Critical Laboratory Results Reviewed: Yes Attending or Supervising Physician who Reviewed Labs: SATYA REY - Radiology Results Radiology Results Interpreted: 04/26/20 08:39 Chest X-Ray 04/26/20 07:28 IMPRESSION: Right-sided pleural effusion with right lung base atelectasis versus consolidation. Cardiomegaly without central vascular congestion. Head CT 04/26/20 07:28 IMPRESSION: No acute intracranial findings. Critical Radiology Results Reviewed: Yes Attending or Supervising Physician who Reviewed Radiology: SATYA REY - EKG Interpretation by Me Additional EKG results interpreted by me: 04/26/20 08:35 Twelve-lead EKG reviewed by me contemporaneously: 0738 hrs. Indication for study: Acute stroke Rhythm: Atrial fibrillation with controlled ventricular response Rate: 105 Intervals: QRS prolongation 138 ms QRS axis: -[address]/T wave changes: No acute ST changes Comparison with prior tracing: Atrial fibrillation has replaced normal sinus rhythm since prior study 04/14/2014 Interpretation: Atrial fibrillation with controlled ventricular response. Intraventricular conduction delay. Critical Care Note - Critical Care Note Total time excluding time spent on procedures (mins): 35 - Code stroke protocol Discharge - Discharge Clinical Impression: Acute CVA (cerebrovascular accident) Condition: Serious Disposition: [facility] Referrals: TOM MOODY MD [Primary Care Provider] - Follow up as needed
[2020-04-26 08:04] LABS: INTERNATIONAL RATION (INR) 0.97; PROTHROMBIN TIME 13.1 SEC (11.4-15.4)
[2020-04-26 08:05] LABS: PARTIAL THROMBOPLASTIN TIME 29.8 SEC (23.5-35.8)
--- NOTE | 2020-04-26 08:07 | EKG REPORT ---
SEVERITY:- ABNORMAL ECG - ATRIAL FIBRILLATION, V-RATE 101-102 PAIRED VENTRICULAR PREMATURE COMPLEXES IVCD, CONSIDER ATYPICAL RBBB INFERIOR INFARCT, ANTEROLATERAL INFARCT, AGE INDETERMINATE : Confirmed by: Vijay Rosenberg MD 26-Apr-2020 08:06:36
[2020-04-26 08:17] LABS: ALBUMIN 2.7 g/dL (3.5-5.0); ALKALINE PHOSPHATASE 108 U/L (38-126); ANION GAP 5 (5-19); ASPARTATE AMINO TRANSFERASE 34 U/L (14-36); BILIRUBIN,DIRECT 0.1 mg/dL (0.0-0.4); BILIRUBIN,TOTAL 0.4 mg/dL (0.2-1.3); BLOOD UREA NITROGEN 14 mg/dL (7-20); CALCIUM 8.2 mg/dL (8.4-10.2); CARBON DIOXIDE 25 mmol/L (22-30); CHLORIDE 99 mmol/L (98-107); GLUCOSE 106 mg/dL (75-110); POTASSIUM 3.5 mmol/L (3.6-5.0); TOTAL PROTEIN 6.1 g/dL (6.3-8.2)
--- NOTE | 2020-04-26 08:18 | RADIOLOGY REPORT (SQ) ---
EXAM DESCRIPTION: CHEST SINGLE VIEW IMAGES COMPLETED DATE/TIME: 04/26/2020 7:35 am REASON FOR STUDY: stroke alert COMPARISON: 11/22/2011. EXAM PARAMETERS: NUMBER OF VIEWS: One view. TECHNIQUE: Single frontal radiographic view of the chest acquired. RADIATION DOSE: NA LIMITATIONS: None. FINDINGS: LUNGS AND PLEURA: Right-sided pleural effusion. Right lung base atelectasis versus consol idation. No pneumothorax. Background of emphysematous changes. MEDIASTINUM AND HILAR STRUCTURES: No masses. Contour normal. HEART AND VASCULAR STRUCTURES: Mild cardiomegaly. No central vascular congestion. BONES: No acute findings. HARDWARE: None in the chest. OTHER: No other significant finding. IMPRESSION: Right-sided pleural effusion with right lung base atelectasis versus consolidation. Car diomegaly without central vascular congestion. TECHNICAL DOCUMENTATION: JOB ID: [id number] 2010 [employer]- All Rights Reserved Reading location - IP/workstation name: [email or web address]
[2020-04-26 08:21] LABS: CREATINE KINASE < 20 U/L (30-135)
[2020-04-26 08:28] LABS: CREATINE KINASE MB 0.24 ng/mL (<4.55)
[2020-04-26 08:30] LABS: TROPONIN I < 0.012 ng/mL
[2020-04-26 08:43] LABS: APPEARANCE,URINE SLIGHTLY-CLOUDY; BILIRUBIN,URINE NEGATIVE (NEGATIVE); COLOR,URINE YELLOW; GLUCOSE, URINE NEGATIVE (NEGATIVE); KETONES,URINE TRACE mg/dL (NEGATIVE); LEUKOCYTE ESTERASE,URINE NEGATIVE (NEGATIVE); NITRITE,URINE POSITIVE (NEGATIVE); PROTEIN,URINE 30 mg/dL (NEGATIVE); URINE SPECIFIC GRAVITY 1.012; UROBILINOGEN,URINE NEGATIVE mg/dL (<2.0)
[2020-04-26 08:54] VITALS: BP 114/75
--- NOTE | 2020-04-26 09:06 | RADIOLOGY REPORT (SQ) ---
EXAM DESCRIPTION: CTA NECK IMAGES COMPLETED DATE/TIME: 04/26/2020 8:44 am REASON FOR STUDY: stroke COMPARISON: PET-CT 07/23/2012 TECHNIQUE: Axial dynamic scanning technique with dynamic contrast enhancement through the extra-cray fishing hand nial carotid and vertebral arteries. Multiplanar reconstruction. 3-D MIPS and Volume-rendered imag es acquired at the workstation and saved to PACS. Images are reviewed in soft tissue, bone, lung w indows. All CT scanners at this facility use dose modulation, iterative reconstruction, and/or weight based d osing when appropriate to reduce radiation dose to as low as reasonably achievable (ALARA). [facility]: Dose Right [facility]: CareDose [facility]: Dose Right [facility]: Teradose 4D [facility]: [place] [employer]rator CONTRAST TYPE AND DOSE: 70 mL Omnipaque 350- low osmolar. RENAL FUNCTION: Due to the severity of the patient's condition, the evaluating physician elected to proceed without laboratory examination. LIMITATIONS: None. FINDINGS: AORTIC ARCH: Normal three-vessel origin. Bilateral subclavian arteries are patent. No d issection. RIGHT CAROTIDS: Calcified plaque within the carotid bulb without significant stenosis. The common, i nternal, and external carotid arteries remain patent. No dissection. RIGHT VERTEBRAL: The right vertebral artery demonstrates diminished inflow with the appearance of occ lusion at the level of the C3 vertebral body. Faint retrograde flow is seen of the intradural termin us. LEFT CAROTIDS: Calcified plaque within the carotid bulb without significant stenosis. The common, in ternal, and external carotid arteries remain patent. No dissection. LEFT VERTEBRAL: Patent. No dissection. OTHER: Right-sided pleural effusion. 6 x 4 x 5 mm right upper lobe pulmonary nodule (axial image 3). 4 x 3 x 7 mm right upper lobe pulmonary nodule (axial image 3). These nodules are unchanged in siz e or character relative to 2013 CT imaging. OTHER: 3-D reconstructions confirm findings. IMPRESSION: 1. 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 Otherwise mendes nt cervical arterial vasculature. Right-sided pleural effusion. Right upper lobe pulmonary nodules 2. Incidental note is made of a right-sided pleural effusion and 2 right upper lobe pulmonary nodule s which do not appear to be significantly changed relative to 2013 CT imaging. COMMENT: Quality ID #[id number]: Measurements of distal internal carotid diameter were used as the denomina tor for stenosis measurement. TECHNICAL DOCUMENTATION: JOB ID: [id number] Quality ID # [id number]: Final reports with documentation of one or more dose reduction techniques (e.g., Au tomated exposure control, adjustment of the mA and/or kV according to patient size, use of iterative reconstruction technique) 2010 [employer]- All Rights Reserved Reading location - IP/workstation name: [email or web address]
--- NOTE | 2020-04-26 09:13 | RADIOLOGY REPORT (SQ) ---
EXAM DESCRIPTION: CTA HEAD IMAGES COMPLETED DATE/TIME: 04/26/2020 8:44 am REASON FOR STUDY: stroke COMPARISON: CTA neck 04/26/2020 TECHNIQUE: Post IV contrast scanning, thin section axial imaging through the brain to evaluate the a rterial structures. Source and MIP images are saved and reviewed on PACS. Advanced 3D imaging as volume-rendering, MIPs, SSD performed? yes All CT scanners at this facility use dose modulation, iterative reconstruction, and/or weight based d osing when appropriate to reduce radiation dose to as low as reasonably achievable (ALARA). [facility]: Dose Right [facility]: CareDose [facility]: Dose Right [facility]: Teradose 4D [facility]: [employer] CONTRAST TYPE AND DOSE: contrast/concentration: Isovue 350.00 mmol/ml; Total Contrast Delivered: 70. 0 ml; Total Saline Delivered: 75.0 ml RENAL FUNCTION: Due to the severity of the patient's condition, the evaluating physician elected to proceed without obtaining laboratory evaluation. LIMITATIONS: None. FINDINGS: [place]: The anterior, middle, posterior cerebral arteries are all patent. No ev idence of aneurysm or focal stenosis. POSTERIOR CIRCULATION: The intradural right vertebral artery appears to be occluded with the suggesti on a small amount of retrograde opacification. The intradural left vertebral artery remains patent. The basilar artery and posterior circulation demonstrate normal opacification. BRAIN: No gross enhancing lesions as visualized. The superior cerebral hemispheres are not included in the field of view. BONES: Intact as visualized. SINUSES: No fluid or mucosal thickening. OTHER: No other significant finding. 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 Intact [place] and preserved posterior circulation. TECHNICAL DOCUMENTATION: JOB ID: [id number] Quality ID # [id number]: Final reports with documentation of one or more dose reduction techniques (e.g., Au tomated exposure control, adjustment of the mA and/or kV according to patient size, use of iterative reconstruction technique) [address]- All Rights Reserved Reading location - IP/workstation name: [email or web address]
== END 2020-04-26 08:59 | disposition short-term general hospital (02) ==
LOC: ER 07:23
DX: I63.9 Cerebral infarction, unspecified (principal); G81.94 Hemiplegia, unspecified affecting left nondominant side; I48.91 Unspecified atrial fibrillation; E78.00 Pure hypercholesterolemia, unspecified; I10 Essential (primary) hypertension
CPT/HCPCS: 36415; 51702; 70450; 70496; 70498; 71045; 80053; 81001; 82550; 82553; 82962; 84484; 85025; 85610; 85730; 93005; 93010; 99285